=== PATIENT | male | born 1960 | race Caucasian/White ===

== ENCOUNTER 2016-08-17 15:09 | Emergency (ER) | payer BC, OTHER ==
[2016-08-17] MEDS ORDERED: ACETAMINOPHEN 325 MG TABLET (FP) PO ONE (15:45)
[2016-08-17 15:54] VITALS: BP 139/71; PULSE 77; TEMP 98.1; BMI 32.8
--- NOTE | 2016-08-17 16:05 | PDOC ---
History of Present Illness - General History Source: Patient Exam Limitations: No Limitations <Aaron Garza - Last Filed: 08/17/16 17:41> - History of Present Illness Initial Comments: 08/17/16 17:51 The patient is a 56 year old male with a past medical hx of diabetes who presents to the ED for evaluation of left knee pain and swelling status post fall today. He notes he scraped his left knee and developed swelling. He went to an Urgent Care today and was referred to the ED for possible septic arthritis. The patient denies fever, chills The patient denies chest pain, SOB Social: No tobacco use reported Allergies: NKDA Surgical: Cholecystectomy PCP: N/A <Moira Echols - Last Filed: 08/17/16 18:08> - General Chief Complaint: Pain Stated Complaint: KNEE PAIN INJURY Time Seen by Provider: 08/17/16 15:33 Past History - Past Medical History Diabetes: Yes Hypercholesterolemia: Yes - Surgical History Cholecystectomy: Yes - Psycho/Social/Smoking Cessation Hx Anxiety: No Suicidal Ideation: No Smoking History: Unknown if ever smoked Have you smoked in the past 12 months: No Information on smoking cessation initiated: No Hx Alcohol Use: Yes Drug/Substance Use Hx: No Substance Use Type: None <Aaron Garza - Last Filed: 08/17/16 17:41> <Moira Echols - Last Filed: 08/17/16 18:08> - Past Medical History Allergies/Adverse Reactions: Allergies Allergy/AdvReac Type Severity Reaction Status Date / Time No Known Allergies Allergy Verified 08/17/16 15:12 Home Medications: Ambulatory Orders Metformin HCl 500 mg PO BID 08/17/16 Simvastatin 10 mg PO DAILY 08/17/16 Sitagliptin Phosphate [Januvia] 25 mg PO DAILY 08/17/16 Review of Systems - Review of Systems Able to Perform ROS?: Yes Comments:: 08/17/16 17:44 GENERAL/CONSTITUTIONAL: No fever or chills. No weakness. HEAD, EYES, EARS, NOSE AND THROAT: No change in vision. No ear pain or discharge. No sore throat. CARDIOVASCULAR: No chest pain or shortness of breath. RESPIRATORY: No cough, wheezing, or hemoptysis. GASTROINTESTINAL: No nausea, vomiting, diarrhea or constipation. GENITOURINARY: No dysuria, frequency, or change in urination. MUSCULOSKELETAL: +Left knee pain. No neck or back pain. SKIN: No rash NEUROLOGIC: No headache, vertigo, loss of consciousness, or change in strength/ sensation. ENDOCRINE: No increased thirst. No abnormal weight change. HEMATOLOGIC/LYMPHATIC: No anemia, easy bleeding, or history of blood clots. ALLERGIC/IMMUNOLOGIC: No hives or skin allergy. <Moira Echols - Last Filed: 08/17/16 18:08> *Physical Exam - Vital Signs Last Vital Signs Temp Pulse Resp BP Pulse Ox 98.1 F 77 19 139/71 100 08/17/16 15:11 08/17/16 15:11 08/17/16 15:11 08/17/16 15:11 08/17/16 15:11 <Aaron Garza - Last Filed: 08/17/16 17:41> - Vital Signs Last Vital Signs Temp Pulse Resp BP Pulse Ox 98.1 F 77 19 139/71 100 08/17/16 15:11 08/17/16 15:11 08/17/16 15:11 08/17/16 15:11 08/17/16 15:11 - Physical Exam Comments: 08/17/16 17:44 GENERAL: Awake, alert, and fully oriented, in no acute distress HEAD: No signs of trauma EYES: PERRLA, EOMI, sclera anicteric, conjunctiva clear ENT: Auricles normal inspection, hearing grossly normal, nares patent, oropharynx clear without exudates. Moist mucosa NECK: Normal ROM, supple, no lymphadenopathy, JVD, or masses LUNGS: Breath sounds equal, clear to auscultation bilaterally. No wheezes, and no crackles HEART: Regular rate and rhythm, normal S1 and S2, no murmurs, rubs or gallops ABDOMEN: Soft, nontender, normoactive bowel sounds. No guarding, no rebound. No masses EXTREMITIES: +Distal pulses intact. Full ROM of left knee with discomfort, left knee suprapatellar effusion, negative posterior and anterior drawer test, negative valgus and varus stress test, small abrasion to left knee. No edema. No clubbing or cyanosis. No cords, erythema. NEUROLOGICAL: +Sensation intact throughout, antalgic gait. Cranial nerves II through XII grossly intact. Normal speech. SKIN: Warm, Dry, normal turgor, no rashes or lesions noted <OnesimoMoira - Last Filed: 08/17/16 18:08> ED Treatment Course - RADIOLOGY Radiology Studies Ordered: Category Date Time Status KNEE 3 POS-LEFT [RAD] Stat Radiology 08/17/16 15:45 Ordered <Aaron Garza - Last Filed: 08/17/16 17:41> - RADIOLOGY Radiograph Interpretation: 08/17/16 17:31 Left knee x-ray IMPRESSION: Marked arthritic changes in a small suprapatellar joint effusion THIS DOCUMENT HAS BEEN ELECTRONICALLY SIGNED Jamir Bermudez MD 08/17/2016 17:18 EST - Medications Given in the ED: ED Medications Discontinued Medications Generic Name Dose Route Start Last Admin Trade Name Freq PRN Reason Stop Dose Admin Acetaminophen 975 mg 08/17/16 15:45 08/17/16 17:00 Tylenol - PO 08/17/16 15:46 975 mg ONCE ONE Administration <TaylorMoira raines - Last Filed: 08/17/16 18:08> Medical Decision Making - Medical Decision Making 08/17/16 17:36 A portion of this note was documented by scribe services under my direction. I have reviewed the details of the note, within reason, and agree with the documentation with the following case summary and management plan written by me. Patient treated in the ED. Nursing notes are reviewed and incorporated into the medical decision-making. Vital signs reviewed. Peripheral IV access obtained by the nurse, laboratory studies are drawn and sent, reviewed and interpreted by myself. Vital Signs Temp Pulse Resp BP Pulse Ox 98.1 F 77 19 139/71 100 08/17/16 15:11 08/17/16 15:11 08/17/16 15:11 08/17/16 15:11 08/17/16 15:11 56-year-old male with past medical history of diabetes presents to the emergency room for left knee pain and swelling status post mechanical fall today. Patient fell and scraped his left knee and developed some swelling. He had visited an urgent care who is concerned for potentially septic arthritis and sent the patient to the ER. The patient has no fevers and I have NO concerns for septic arthritis at this point. Patient does have some left knee effusion likely secondary to his mechanical fall. He does have an abrasion of his left knee but no signs of infection. Left knee x-ray demonstrates arthritic changes but no acute fractures or dislocations. Patient reports that he has had arthritis in the left knee and has had hydrocortisone injections prior. An Edmar wrap was applied to his left knee. Weightbearing as tolerated. I stressed to the patient that he needs supportive care and if symptoms are persistent, he needs to follow up with his primary care physician and orthopedist. Patient verbalizes understanding and agrees with plan. I discussed the physical exam findings, ancillary test results and final diagnoses with the patient. I answered all of the patient's questions. The patient was satisfied with the care received and felt comfortable with the discharge plan and treatment plan. The patient will call their primary care physician within 24 hours to arrange follow-up and will return to the Emergency Department with any new, persistant or worsening symptoms. <Aaron Garza - Last Filed: 08/17/16 17:41> *DC/Admit/Observation/Transfer - Discharge Dispostion Admit: No <Aaron Garza - Last Filed: 08/17/16 17:41> - Attestations Scribe Attestion: 08/17/16 17:31 Documentation prepared by Moira Echols, acting as medical art therapist for Aaron Garza MD. <Moira Echols - Last Filed: 08/17/16 18:08> Diagnosis at time of Disposition: Knee pain, left Qualifiers: Chronicity: acute Qualified Code(s): M25.562 - Pain in left knee - Discharge Dispostion Disposition: HOME Condition at time of disposition: Stable - Referrals Referrals: Prashant Terrell MD [Staff Physician] - - Patient Instructions Printed Discharge Instructions: DI for Knee Pain Additional Instructions: Your xray shows NO fractures but does show arthritis. Please wear the EDMAR wrap as needed for comfort. Elevate the leg as much as you can. Ice as needed. Take 600 mg ibuprofen every 6 hours and/or 650 mg tylenol every 4 hours as needed for pain. If your symptoms are persistent for over a week, please make an appointment with an orthopedist.
[2016-08-17] MEDS ORDERED: ACETAMINOPHEN 325 MG TABLET (FP) ONE (16:59)
== END 2016-08-17 17:44 | disposition home or self-care (01) ==
LOC: FER 15:09
DX: M25.562 Pain in left knee (principal); E11.9 Type 2 diabetes mellitus without complications; E78.00 Pure hypercholesterolemia, unspecified; Z79.84 Long term (current) use of oral hypoglycemic drugs
CPT/HCPCS: 73562-TC-LT; 99283-25

== ENCOUNTER 2020-04-24 19:37 | Emergency (ER) | payer BC, OTHER ==
[2020-04-24 19:41] VITALS: BP 144/92; PULSE 83; TEMP 98.2; BMI 31.4
--- NOTE | 2020-04-24 20:07 | PDOC ---
History of Present Illness - General Chief Complaint: Pain, Acute Stated Complaint: FALL, LEFT SHOULDER INJURY Time Seen by Provider: 04/24/20 19:39 - History of Present Illness Initial Comments: 04/24/20 20:07 This 60-year-old man with a history of DM/HLD presents with history of injury to the left shoulder a few hours prior to presentation. The patient was carrying boxes down staircase at work when he missed the last step. Patient fell on terrazzo floor, impacting lateral aspect of left shoulder as well as left knee/left side of pelvis. No head or neck impact. Patient denies loss of consciousness. He was able to ambulate without difficulty after the fall. Although he has mild discomfort in the left knee and left side of his pelvis, he is able to walk without significant pain in either of those areas. His major discomfort is in the left shoulder, especially with abduction of the left arm. No previous history of left shoulder injury Medications as noted below No known allergies Non-smoker; no daily alcohol or other recreational drugs Patient works for the [employer] in [place] Past History - Medical History Allergies/Adverse Reactions: Allergies Allergy/AdvReac Type Severity Reaction Status Date / Time No Known Allergies Allergy Verified 08/17/16 15:12 Home Medications: Ambulatory Orders Simvastatin 10 mg PO DAILY 08/17/16 Sitagliptin Phosphate [Januvia] 25 mg PO DAILY 08/17/16 metFORMIN HCL [Metformin HCl] 500 mg PO BID 08/17/16 Diclofenac Sodium 75 mg PO BID PRN #12 tablet. 04/24/20 COPD: No Diabetes: Yes Hypercholesterolemia: Yes - Surgical History Cholecystectomy: Yes - Immunization History Immunization Up to Date: Yes - Psycho-Social/Smoking History Smoking History: Never smoked Have you smoked in the past 12 months: No Information on smoking cessation initiated: No - Substance Abuse Hx (Audit-C & DAST Scrn) How often the patient has a drink containing alcohol: 2-4 times / month Number of drinks the patient has on a typical day: 1 or 2 How often the patient has six or more drinks on one occasion: Less than monthly Score: In Men: 4 or > Positive; In Women: 3 or > Positive: 3 Screen Result (Pos requires Nsg. Audit-10AR): Negative In the last yr the pt used illegal drug/Rx for NonMed reason: No Score: Yes response is considered Positive: 0 Screen Result (Positive result requires Nsg. DAST-10): Negative Review of Systems - Review of Systems Able to Perform ROS?: Yes Comments:: 12 point review of systems is negative except for what is noted in the history of present illness *Physical Exam - Vital Signs Last Vital Signs Temp Pulse Resp BP Pulse Ox 98.2 F 83 20 144/92 98 04/24/20 19:38 04/24/20 19:38 04/24/20 19:38 04/24/20 19:38 04/24/20 19:38 - Physical Exam GENERAL: Adult male, alert and oriented x3, no acute distress HEAD: Normal with no signs of trauma. EYES: PERRLA, EOMI, sclera anicteric, conjunctiva clear. ENT: Ears normal, nares patent, oropharynx clear without exudates. Moist mucous membranes. NECK: Normal range of motion, supple without lymphadenopathy, JVD, or masses. LUNGS: Breath sounds equal, clear to auscultation bilaterally. No wheezes, and no crackles. HEART:Regular rate and rhythm, normal S1 and S2 without murmur, rub or gallop. ABDOMEN:.normal bowel sounds No guarding,tenderness or rebound.No masses No distention. EXTREMITIES: Left UE-mild tenderness at AC joint without gross deformity; pain reproduced with abduction of arm but full ROM present No tenderness, deformity or ecchymosis in remainder of left upper extremity Motor and sensory sensation intact in distal left arm Left kneenonbleeding abrasion, 2 cm x 2 cm , of anterior surface no other patella without tenderness, edema or deformity no other edema, tenderness or deformity of the knee Mild tenderness of left anterior superior iliac spine; no ecchymosis or edema noted Remainder of the extremity exam is normal NEUROLOGICAL: Cranial nerves II through XII grossly intact. Normal speech. No focal neurological deficits. SKIN: Warm, Dry, normal turgor, no rashes or lesions noted. Medical Decision Making - Medical Decision Making This 60-year-old man with a history of DM/HLD missed last step while descending staircase at work earlier today, falling onto his left side. No LOC/neck injury. He presents with persistent left shoulder discomfort, worse with movement of arm but full range of motion is present. Exam as noted Left shoulder x-ray performed with preliminary interpretation by me: No evidence of fracture or dislocation. No obvious widening of AC joint Results discussed with the patient. Since his job at the [employer] involves a fair amount of lifting, work documentation to stay home tomorrow will be provided for the patient. Patient generally takes [id number] nonsteroidal anti-inflammatory medications as needed for pain. Toradol 60 mg IM given here. Prescription for diclofenac 75 mg twice a day as needed for pain (take with food) sent to his pharmacy. Meanwhile, the patient should continue to ice the left shoulder for the next 24 hours; sling was provided for the next few days. After 2 days, he should begin progressive movement of the shoulder joint as tolerated. He has an orthopedist, whom he should follow-up with especially if he has persistent pain in the shoulder Discharge - Discharge Information Problems reviewed: Yes Clinical Impression/Diagnosis: Sprain of shoulder Qualifiers: Encounter type: initial encounter Shoulder sprain type: coracohumeral ligament Laterality: left Qualified Code(s): S43.412A - Sprain of left coracohumeral (ligament), initial encounter Condition: Stable Disposition: HOME - Additional Discharge Information Prescriptions: Diclofenac Sodium 75 mg PO BID PRN #12 tablet.dr BECKER Reason: Moderate Pain - Follow up/Referral - Patient Discharge Instructions Patient Printed Discharge Instructions: Shoulder Sprain Additional Instructions: Ice to left shoulder for the next 24 hours;15 min on/15 off Sling as needed on left side for the next 2 days; then increase movement as tolerated Diclofenac 75 mg twice a day as needed for pain; take with food No work tomorrow Avoid lifting/pushing/ pulling involving the left arm for the next 2 weeks Follow-up with your orthopedist within the next 5-7 days, especially if you have persistent pain - Post Discharge Activity Work/Back to School Note: Back to Work
[2020-04-24] MEDS ORDERED: KETOROLAC TROMETHAMINE 60 MG/2 ML VIAL IM ONE (20:20)
[2020-04-24] MEDS ORDERED: KETOROLAC TROMETHAMINE 60 MG/2 ML VIAL ONE (20:21)
== END 2020-04-24 20:37 | disposition home or self-care (01) ==
LOC: FER 19:37
PROC: 3E0233Z Introduction of Anti-inflammatory into Muscle, Percutaneous Approach (ICD-10-PCS; principal; 2020-04-24)
DX: S43.412A Sprain of left coracohumeral (ligament), initial encounter (principal)
CPT/HCPCS: 73030-TC-LT-FY; 99284-25

== ENCOUNTER 2020-06-25 20:17 | Emergency (ER) | payer OTHER | END 2020-06-25 20:34 | disposition home or self-care (01) | LOC: JVIRT 20:17 | DX: Z03.818 Encounter for observation for suspected exposure to other biological agents ruled out (principal) | CPT/HCPCS: C9803; Q3014-GT; U0003 ==

== ENCOUNTER 2020-11-04 14:52 | Emergency (ER) | payer OTHER ==
[2020-11-04 14:58] VITALS: BP 125/76; PULSE 69; TEMP 98; BMI 30.5
[2020-11-04] MEDS ORDERED: ACETAMINOPHEN 500 MG TABLET (FP) PO ONE (15:29)
[2020-11-04] MEDS ORDERED: IBUPROFEN 600 MG TABLET (FP) PO ONE ×2 (15:29→15:42)
[2020-11-04] MEDS ORDERED: LIDOCAINE 5% TOPICAL PATCH TP ONE (15:29)
[2020-11-04] MEDS ORDERED: ACETAMINOPHEN 500 MG TABLET (FP) ONE (15:42)
[2020-11-04] MEDS ORDERED: LIDOCAINE 5% TOPICAL PATCH ONE (15:42)
[2020-11-04] MEDS ORDERED: LIDOCAINE PATCH REMOVAL MC SCH (22:00)
== END 2020-11-04 16:31 | disposition home or self-care (01) ==
LOC: FER 14:52
DX: M25.511 Pain in right shoulder (principal)
CPT/HCPCS: 99283-25

== ENCOUNTER 2024-08-23 06:08 | Day surgery (SDC) | payer OTHER ==
[2024-08-14 15:33] VITALS: BMI 28.5
[2024-08-23] MEDS ORDERED: BUPIVACAINE HCL/PF 0.5% (5 MG/ML) 30 ML VIAL IJ ONE (07:19)
[2024-08-23] MEDS ORDERED: MIDAZOLAM HCL 2 MG/2 ML SINGLE DOSE VIAL ONE ×3 (07:20→09:28)
[2024-08-23] MEDS ORDERED: BUPIVACAINE LIPOSOME/PF (EXPAREL) 266 MG/20 ML VIAL ONE (07:20)
[2024-08-23] MEDS ORDERED: BUPIVACAINE HCL/PF 0.5% (5MG/ML) 10 ML VIAL ONE (07:26)
[2024-08-23] MEDS ORDERED: ONDANSETRON 4 MG/2 ML VIAL IVPUSH PRN ×2 (07:55→10:10)
[2024-08-23] MEDS ORDERED: oxyCODONE HCL 5 MG TABLET PO PRN (07:55)
[2024-08-23] MEDS ORDERED: ceFAZolin SODIUM 1 GM VIAL ONE (08:25)
[2024-08-23] MEDS ORDERED: DEXAMETHASONE SOD PHOSPHATE 4 MG/1 ML VIAL ONE (08:25)
[2024-08-23] MEDS ORDERED: TRANEXAMIC ACID 1000 MG/10 ML VIAL ONE ×2 (08:25→09:10)
[2024-08-23] MEDS ORDERED: ONDANSETRON 4 MG/2 ML VIAL ONE (08:25)
[2024-08-23] MEDS ORDERED: MAGNESIUM HYDROX 2400MG/30ML ORAL SUSPENSION 30 ML CUP PO PRN (10:10)
[2024-08-23] MEDS ORDERED: MAG HYDROX/AL HYDROX/SIMETH 30 ML UNIT-DOSE CUP PO PRN (10:10)
[2024-08-23] MEDS ORDERED: KETOROLAC TROMETHAMINE 30 MG/1 ML VIAL ONE (10:17)
[2024-08-23] MEDS: KETOROLAC TROMETHAMINE 30 MG/1 ML VIAL IVPUSH SCH ×2 (10:25→16:28)
[2024-08-23] MEDS: ACETAMINOPHEN 1000 MG/100 ML BAG IVPB ONE (10:30)
[2024-08-23] MEDS: INSULIN ASPART SLIDING SCALE (NOVOLOG) 1 VIAL SQ SCH (11:28)
[2024-08-23] MEDS: CEFAZOLIN 2 GM in DEXTROSE 5%-WATER - 100 ML IVPB ONE (17:09)
[2024-08-23] MEDS: oxyCODONE HCL 10 MG SUSTAINED ACTING TABLET PO SCH (17:09)
[2024-08-23] MEDS: LACTATED RINGERS SOLUTION 1,000 ML IV SCH (17:09)
[2024-08-23] MEDS: CEFAZOLIN 2 GM/D5W 2 GRAM/50 ML ML IVPB SCH (17:25)
[2024-08-23] MEDS ORDERED: ACETAMINOPHEN 500 MG TABLET (FP) PO SCH (18:00)
[2024-08-23 20:14] VITALS: RESP 18
[2024-08-23] MEDS: SENNOSIDES/DOCUSATE COMBO (SENNA PLUS) TABLET (UD) PO SCH (21:20)
[2024-08-23] MEDS: oxyCODONE HCL 5 MG TABLET PO PRN (21:21)
[2024-08-23] MEDS: ASPIRIN 81 MG CHEWABLE TABLETS PO SCH (21:22)
[2024-08-23] MEDS: ATORVASTATIN CA 10 MG TABLET (FP) PO SCH (21:23)
[2024-08-23] MEDS: ACETAMINOPHEN 1000 MG/100 ML BAG IVPB SCH (21:23)
[2024-08-23] MEDS: FAMOTIDINE 20 MG TABLET PO SCH (21:23)
[2024-08-23] MEDS: ASCORBIC ACID 500 MG TABLET (FP) PO SCH (21:23)
[2024-08-23] MEDS: DEXAMETHASONE 4 MG TABLET (FP) PO ONE (21:45)
[2024-08-23] MEDS: TRANEXAMIC ACID 1000 MG/10 ML VIAL IVPUSH ONE (21:45)
[2024-08-24] MEDS: TRANEXAMIC ACID 1000 MG/10 ML VIAL IVPUSH ONE (09:09)
[2024-08-24] MEDS: VALSARTAN 160 MG TABLET PO SCH (09:09)
[2024-08-24] MEDS: MULTIVITAMINS (DAILY MVI) TABLET (FP) PO SCH (09:10)
[2024-08-24] MEDS: amLODIPine BESYLATE 10 MG TABLET (FP) PO SCH (09:10)
[2024-08-24] MEDS: DEXAMETHASONE 4 MG TABLET (FP) PO SCH (09:10)
[2024-08-24] MEDS: HYDROCHLOROTHIAZIDE 25 MG TABLET (FP) PO SCH (09:10)
[2024-08-24] MEDS: CELECOXIB 200 MG CAPSULE PO SCH (09:10)
[2024-08-24] MEDS ORDERED: FOLIC PO SCH (10:00)
[2024-08-24] MEDS ORDERED: IRON PO SCH (10:00)
[2024-08-24] MEDS ORDERED: DEXAMETHASONE 4 MG TABLET (FP) PO ONE (10:00)
[2024-08-24] MEDS ORDERED: LUTEIN PO SCH (10:00)
[2024-08-24] MEDS ORDERED: [UNRECOGNIZED DRUG - OTHER] PO SCH (10:00)
[2024-08-24] MEDS ORDERED: MULTIVIT MIN PO SCH (10:00)
[2024-08-24] MEDS: ACETAMINOPHEN 500 MG TABLET (FP) PO SCH (10:12)
[2024-08-24 14:58] VITALS: BP 116/68; PULSE 67; TEMP 98.1
== END 2024-08-24 16:29 | disposition home or self-care (01) ==
LOC: FASUSAT 06:08 → FM/S 11:00 → FASUSAT 08-24 16:29
PROVIDERS: ATTEND Orthopaedic Surgery
PROC: 0SRD0J9 Replacement of Left Knee Joint with Synthetic Substitute, Cemented, Open Approach (ICD-10-PCS; principal; 2024-08-23 08:28)
DX: M17.12 Unilateral primary osteoarthritis, left knee (principal)
CPT/HCPCS: 27447; C1776; 73560-TC-LT-FY; 82962; 94760; 97116-GP; 97162-GP; J0131